=== PATIENT | female | born 1990 | race Caucasian/White ===

== ENCOUNTER 2024-05-09 17:08 | Emergency (ER) | payer OTHER ==
[~2024-05-09] VITALS: Ht 172.7 cm; Wt 131.5 kg
[2024-05-09] MEDS ORDERED: SODIUM CHLORIDE 0.9% 1000ML 1,000 ML IV STA (17:22)
[2024-05-09] MEDS ORDERED: OXYTOCIN INJ 10 UNIT/ML VIAL IV ONE (17:30)
[2024-05-09 17:42] VITALS: PULSE 82; RESP 20; TEMP 98.4
[2024-05-09 18:03] LABS: BASOPHILS % 0.5 % (0.0-1.0); EOSINOPHILS # (AUTO) 0.1 (0.0-0.4); HEMOGLOBIN 10.1 g/dL (12.0-16.0); LYMPHOCYTES # (AUTO) 1.5 (1.0-3.2); MEAN CORPUSCULAR HEMOGLOBIN 20.3 pg (28-32); MEAN CORPUSCULAR HGB CONC 29.7 g/dL (31-35); MEAN CORPUSCULAR VOLUME 68.3 fL (81-99); MONOCYTES # (AUTO) 0.6 (0.2-0.8); MONOCYTES % 6.8 % (4.4-11.3); NEUTROPHILS # (AUTO) 5.9 (2.1-6.9); NEUTROPHILS % 72.3 % (38.7-80.0); PLATELET COUNT 225 x10e3/uL (140-360); RED BLOOD COUNT 4.98 x10e6/uL (3.6-5.1); RED CELL DISTRIBUTION WIDTH 16.8 % (11.7-14.4)
[2024-05-09 18:08] LABS: INR 0.93
[2024-05-09 18:09] LABS: PARTIAL THROMBOPLASTIN TIME 22.2 seconds (23.8-35.5)
[2024-05-09 18:16] LABS: ALBUMIN 2.8 g/dL (3.5-5.0); ALBUMIN/GLOBULIN RATIO 0.6 (0.8-2.0); ANION GAP 15.7 mmol/L (8-16); BILIRUBIN,TOTAL 0.3 mg/dL (0.2-1.2); CALCIUM 8.6 mg/dL (8.4-10.2); CREATININE, SERUM 0.66 mg/dL (0.57-1.11); POTASSIUM 3.7 mmol/L (3.5-5.1); TOTAL PROTEIN 7.2 g/dL (6.5-8.1)
[2024-05-09 19:44] VITALS: BP 145/61; PULSE 88; RESP 14; TEMP 98.5; O2SAT 97
== END 2024-05-09 19:22 | disposition other institution (70) ==
LOC: ER 17:20
DX: O80 Encounter for full-term uncomplicated delivery (principal); Z3A.38 38 weeks gestation of pregnancy
CPT/HCPCS: 36415; 80053; 85025; 85610; 85730; 99284; J2590